=== PATIENT | female | born 1980 ===

== ENCOUNTER 2019-05-21 16:57 | Emergency (ER) | payer SELFPAY ==
[~2019-05-21] VITALS: Ht 162 cm; Wt 72.5 kg
[2019-05-21 17:15] LABS: BASOPHILS % (AUTO) 0 % (0-10); EOSINOPHILS % (AUTO) 0 % (0-10); HEMATOCRIT 42 % (35-52); HEMOGLOBIN 13.9 G/DL (11.5-16.0); LYMPHOCYTES % (AUTO) 22 % (12-44); MEAN CORPUSCULAR HEMOGLOBIN 28 PG (25-34); MEAN CORPUSCULAR HGB CONC 33 G/DL (32-36); MEAN CORPUSCULAR VOLUME 84 FL (80-99); MEAN PLATELET VOLUME 9.7 FL (7.4-10.4); MONOCYTES # (AUTO) 0.7 X 10^3 (0.0-1.0); MONOCYTES % (AUTO) 7 % (0-12); NEUTROPHILS # (AUTO) 6.6 X 10^3 (1.8-7.8); NEUTROPHILS % (AUTO) 71 % (42-75); PLATELET COUNT 320 10^3/uL (130-400); RED CELL DISTRIBUTION WIDTH 14.2 % (10.0-14.5); WHITE BLOOD COUNT 9.3 10^3/uL (4.3-11.0)
[2019-05-21] MEDS ORDERED: LACTATED RINGERS 1,000 ML IV ONE (17:38)
[2019-05-21 17:45] LABS: ALANINE AMINOTRANSFERASE 23 U/L (0-55); ALBUMIN 4.4 GM/DL (3.2-4.5); ALKALINE PHOSPHATASE 93 U/L (40-136); BILIRUBIN,TOTAL 0.3 MG/DL (0.1-1.0); BUN/CREATININE RATIO 13; CALCIUM 9.4 MG/DL (8.5-10.1); CARBON DIOXIDE 26 MMOL/L (21-32); CHLORIDE 105 MMOL/L (98-107); CREATININE SERUM 0.64 MG/DL (0.60-1.30); GFR ESTIMATED > 60; GLUCOSE 104 MG/DL (70-105); LIPASE 10 U/L (8-78); POTASSIUM 3.8 MMOL/L (3.6-5.0); SODIUM 139 MMOL/L (135-145); TOTAL PROTEIN 7.7 GM/DL (6.4-8.2)
[2019-05-21 17:48] LABS: PROTHROMBIN TIME PATIENT 13.5 SEC (12.2-14.7)
--- NOTE | 2019-05-21 17:53 | ED Chest Pain ---
General Chief Complaint: Chest Pain Stated Complaint: CHEST PAIN,SOB Nursing Triage Note: PT PRESENTS TO ED WITH COMPLAINTS OF R LOWER CP THAT INTERMITTENTLY RADIATES TO BOTH HER SHOULDERS X 4 DAYS. PT ALSO REPORTS SOA. Nursing Sepsis Screen: No Definite Risk Source: patient Exam Limitations: language barrier History of Present Illness Date Seen by Provider: May 21, 2019 Time Seen by Provider: 17:27 Initial Comments speaking and interview and exam via uniform force captain line. Here with report of chest discomfort that she describes as palpitations and tightness that radiates to her shoulders. She states that is happens intermittently and has happened over the last several days. She states that sometimes she will wake up and feel the palpitations. She reports that she feels like she can't breathe and has to breathe roll hard to get comfortable but then her hands and feet are numb and sometimes her face. There are times when she has nausea after eating and will have an episode again. Denies vomiting or diarrhea but does have occasional constipation. Denies dysuria. No other significant medical problems. Timing/Duration: intermittent, 4-5 days Severity/Quality: mild, tightness Location: central Radiation: shoulders Activities at Onset: none Prior CP/Workup: no prior chest pain Modifying Factors: improves with rest Associated Symptoms: No abdominal pain, No back pain, No diaphoresis; fatigue, nausea/vomiting, shortness of breath, weakness Allergies and Home Medications Allergies Coded Allergies: No Known Drug Allergies (Unverified , 05/21/19) Home Medications No Active Prescriptions or Reported Meds Patient Home Medication List Home Medication List Reviewed: Yes Review of Systems Review of Systems Constitutional: see HPI; No chills, No fever EENTM: No Symptoms Reported Respiratory: See HPI Cardiovascular: See HPI Gastrointestinal: See HPI; Denies Abdominal Pain Genitourinary: No Symptoms Reported Musculoskeletal: no symptoms reported Skin: no symptoms reported Psychiatric/Neurological: Anxiety, Numbness Endocrine: No Symptoms Reported All Other Systems Reviewed Negative Unless Noted: Yes Past Jlqgaof-Qxwsfm-Hixyol Hx Past Med/Social Hx: Reviewed Nursing Past Med/Soc Hx Patient Social History Alcohol Use: Denies Use Recreational Drug Use: No Smoking Status: Never a Smoker Recent Foreign Travel: No Contact w/Someone Who Travel: No Recent Infectious Disease Expo: No Physical Abuse: No Sexual Abuse: No Mistreated: No Fear: No Past Medical History Surgeries: Yes Section Respiratory: No Cardiac: No Neurological: No Genitourinary: No Gastrointestinal: No Musculoskeletal: No Endocrine: No HEENT: No Cancer: No Psychosocial: No Integumentary: No Blood Disorders: No Family Medical History Reviewed Nursing Family Hx No Pertinent Family Hx Physical Exam Vital Signs Vital Signs - First Documented 05/21/19 17:06 Temp 36.5 Pulse 79 Resp 16 B/P (MAP) 121/85 (97) Pulse Ox 100 O2 Delivery Room Air Capillary Refill : Less Than 3 Seconds Height, Weight, BMI Height: '" Weight: lbs. oz. kg; 27.00 BMI Method: General Appearance: No Apparent Distress, WD/WN HEENT: PERRL/EOMI, Pharynx Normal Neck: Non Tender, Supple Respiratory: Lungs Clear, Normal Breath Sounds Cardiovascular: Regular Rate, Rhythm, No Murmur Gastrointestinal: Non Tender, Soft Extremity: Normal Range of Motion, Non Tender, Other ( defect bilateral hands) Neurologic/Psychiatric: Alert, Oriented x3 Skin: Normal Color, Warm/Dry Progress/Results/Core Measures Results/Orders Lab Results Laboratory Tests Test 05/21/19 17:04 Range/Units White Blood Count 9.3 4.3-11.0 10^3/uL Red Blood Count 4.98 4.35-5.85 10^6/uL Hemoglobin 13.9 11.5-16.0 G/DL Hematocrit 42 35-52 % Mean Corpuscular Volume 84 80-99 FL Mean Corpuscular Hemoglobin 28 25-34 PG Mean Corpuscular Hemoglobin Concent 33 32-36 G/DL Red Cell Distribution Width 14.2 10.0-14.5 % Platelet Count 320 130-400 10^3/uL Mean Platelet Volume 9.7 7.4-10.4 FL Neutrophils (%) (Auto) 71 42-75 % Lymphocytes (%) (Auto) 22 12-44 % Monocytes (%) (Auto) 7 0-12 % Eosinophils (%) (Auto) 0 0-10 % Basophils (%) (Auto) 0 0-10 % Neutrophils # (Auto) 6.6 1.8-7.8 X 10^3 Lymphocytes # (Auto) 2.0 1.0-4.0 X 10^3 Monocytes # (Auto) 0.7 0.0-1.0 X 10^3 Eosinophils # (Auto) 0.0 0.0-0.3 10^3/uL Basophils # (Auto) 0.0 0.0-0.1 10^3/uL Prothrombin Time 13.5 12.2-14.7 SEC INR Comment 1.0 0.8-1.4 Activated Partial Thromboplast Time 29 24-35 SEC D-Dimer < 0.27 0.00-0.49 UG/ML Sodium Level 139 135-145 MMOL/L Potassium Level 3.8 3.6-5.0 MMOL/L Chloride Level 105 98-107 MMOL/L Carbon Dioxide Level 26 21-32 MMOL/L Anion Gap 8 5-14 MMOL/L Blood Urea Nitrogen 8 7-18 MG/DL Creatinine 0.64 0.60-1.30 MG/DL Estimat Glomerular Filtration Rate > 60 BUN/Creatinine Ratio 13 Glucose Level 104 70-105 MG/DL Calcium Level 9.4 8.5-10.1 MG/DL Corrected Calcium 9.1 8.5-10.1 MG/DL Magnesium Level 2.0 1.6-2.4 MG/DL Total Bilirubin 0.3 0.1-1.0 MG/DL Aspartate Amino Transf (AST/SGOT) 18 5-34 U/L Alanine Aminotransferase (ALT/SGPT) 23 0-55 U/L Alkaline Phosphatase 93 40-136 U/L Myoglobin 17.6 10.0-92.0 NG/ML Troponin I < 0.028 <0.028 NG/ML B-Type Natriuretic Peptide < 10.0 <100.0 PG/ML Total Protein 7.7 6.4-8.2 GM/DL Albumin 4.4 3.2-4.5 GM/DL Lipase 10 8-78 U/L TSH [place] Testing 3.31 0.35-4.94 UIU/ML My Orders Orders - JENNA YA MD Lactated Ringers (Lr 1000 Ml Iv Solution (05/21/19 17:38) Thyroid Analyzer (05/21/19 17:53) Medications Given in ED Current Medications Medications Dose Ordered Sig/Rakesh Route Start Time Stop Time Status Last Admin Dose Admin Lactated Ringer's 1,000 ml @ 0 mls/hr Q0M ONCE IV 05/21/19 17:38 05/21/19 17:39 DC 05/21/19 17:49 0 MLS/HR Vital Signs/I&O 05/21/19 05/21/19 17:06 17:06 Temp 36.5 Pulse 79 Resp 16 B/P (MAP) 121/85 (97) Pulse Ox 100 O2 Delivery Room Air Blood Pressure Mean: 97 Progress Progress Note : Progress Note Seen and evaluated. IV, labs, chest x-ray and EKG ordered. LR 1 L bolus. Monitor patient. 183: All labs and images are normal. Patient is doing much better. I did discuss with her regarding anxiety. We will initiate Vistaril for these events. Have instructed her to follow-up as well. Discharged home with return precautions. Patient verbalize understanding instructions and agreement with plan. Initial ECG Impression Date: May 21, 2019 Initial ECG Impression Time: 17:04 Initial ECG Rate: 86 Initial ECG Rhythm: Normal Sinus Initial ECG Impression: Normal Initial ECG Comparisson: No Previous ECG Available Comment Normal sinus rhythm with normal axis. No evidence of ST elevation [place]. No previous available for comparison. Interpreted by me. Diagnostic Imaging Diagonstic Imaging: Xray Plain Films/CT/US/NM/MRI: chest Comments NAME: LEOBARDO HOFFMANN [facility] REC#: [id number] PT STATUS: REG ER : 1980 PHYSICIAN: JUSTIN GUSTAFSON APRN ADMIT DATE: 05/21/19/ER Draft Date of Exam:05/21/19 CHEST 1 VIEW, AP/PA ONLY INDICATION: Right lower chest pain intermittently radiating to both shoulders for four days. EXAMINATION: Single view chest, 05/21/2019. FINDINGS: The heart and pulmonary vasculature appear unremarkable. The lungs and pleural spaces are clear. No pneumothorax. IMPRESSION: No acute process. Dictated on workstation # [id number] Dict: 05/21/19 1751 Trans: 05/21/19 1810 [facility] [id number] Interpreted by: CHILANGO ULLOA MD Electronically signed by: Departure Impression Primary Impression: Chest pain Qualified Codes: R07.9 - Chest pain, unspecified Additional Impression: Anxiety Disposition: 01 HOME, SELF-CARE Condition: Improved Departure-Patient Inst. Decision time for Depature: 18:40 Referrals: NO,LOCAL PHYSICIAN (PCP) Primary Care Physician Patient Instructions: Chest Pain (DC), Anxiety, Adult (DC) Add. Discharge Instructions: All discharge instructions reviewed with patient and/or family. Voiced understanding. Take medications as directed. Follow-up with your Dr. in a few days for recheck as needed. Return for chest pain, breathing problems, weakness, vomiting or other concerns as needed. Scripts Hydroxyzine Pamoate (Vistaril) 25 Mg Capsule 25 MG PO Q8H PRN for ANXIETY, #20 CAP 0 Refills Prov: JENNA YA MD 05/21/19 Copy Copies To 1: PATRICIA ADHIKARI TIMOTHY D MD May 21, 2019 17:53
--- NOTE | 2019-05-21 18:12 | Diagnostic Imaging Report ---
INDICATION: Right lower chest pain intermittently radiating to both shoulders for four days. EXAMINATION: Single view chest, 05/21/2019. FINDINGS: The heart and pulmonary vasculature appear unremarkable. The lungs and pleural spaces are clear. No pneumothorax. IMPRESSION: No acute process. Dictated by: Dictated on workstation # [id number]
[2019-05-21] MEDS ORDERED: HYDR25CA PO (18:43)
[2019-05-21 18:56] VITALS: BP 116/71
--- OUTSIDE RECORDS SUMMARY | 2019-05-25 17:43 | XMS REPORT | Continuity of Care Document ---
Author Organization Unknown Address Unknown Phone Unavailable Allergies Active Description Code Type Severity Reaction Onset Reported/Identified Relationship to Patient Clinical Status Yes No Known Drug Allergies [id number] Drug Allergy Unknown N/A 05/21/2019 Medications There is no data. Problems There is no data. Procedures There is no data. Results Test Result Range Complete blood count (CBC) with automate d white blood cell (WBC) differential - 05/21/19 17:04 Blood leukocytes automated count (number/volume) 9.3 10*3/uL 4.3-11.0 Blood erythrocytes automated count (number/volume) 4.98 10*6/uL 4.35-5.85 Venous blood hemoglobin measurement (mass/volume) 13.9 g/dL 11.5-16.0 Blood hematocrit (volume fraction) 42 % 35-52 Automated erythrocyte mean corpuscular volume 84 [ foz_us] 80-99 Automated erythrocyte mean corpuscular h emoglobin (mass per erythrocyte) 28 pg 25-34 Automated erythrocyte mean corpuscular h emoglobin concentration measurement (mass/volume) 33 g/dL 32-36 Automated erythrocyte distribution width ratio 14. 2 % 10.0- 14.5 Automated blood platelet count (count/volume) 320 10*3/uL 130-400 Automated blood platelet mean volume measurement 9.7 [foz_us] 7.4-10.4 Automated blood neutrophils/100 leukocytes 71 % 42-75 Automated blood lymphocytes/100 leukocytes 22 % 12-44 Blood monocytes/100 leukocytes 7 % 0-12 Automated blood eosinophils/100 leukocytes 0 % 0-10 Automated blood basophils/100 leukocytes 0 % 0-10 Blood neutrophils automated count (number/volume) 6.6 10*3 1.8-7.8 Blood lymphocytes automated count (number/volume) 2.0 10*3 1.0-4.0 Blood monocytes automated count (number/volume) 0. 7 10*3 0.0-1.0 Automated eosinophil count 0.0 10*3/uL 0 .0-0.3 Automated blood basophil count (count/volume) 0.0 10*3/uL 0.0-0.1 Comprehensive metabolic panel - 05/21/19 17:04 Serum or plasma sodium measurement (moles/volume) 139 mmol/L 135-145 Serum or plasma potassium measurement (moles/volume) 3.8 mmol/L 3.6-5.0 Serum or plasma chloride measurement (moles/volume) 105 mmol/L 98-107 Carbon dioxide 26 mmol/L 21-32 Serum or plasma anion gap determination (moles/volume) 8 mmol/L 5-14 Serum or plasma urea nitrogen measurement (mass/volume ) 8 mg/dL 7-18 Serum or plasma creatinine measurement (mass/volume) 0.64 mg/dL 0.60-1.30 Serum or plasma urea nitrogen/creatinine mass ratio 13 NRG Serum or plasma creatinine measurement w ith calculation of estimated glomerular filtration rate > NRG Serum or plasma glucose measurement (mass/volume) 104 mg/dL 70-105 Serum or plasma calcium measurement (mass/volume) 9.4 mg/dL 8.5-10.1 Serum or plasma total bilirubin measurement (mass/volu me) 0.3 mg/dL 0.1-1.0 Serum or plasma alkaline phosphatase carmela surement (enzymatic activity/volume) 93 U/L 40-136 Serum or plasma aspartate aminotransfera se measurement (enzymatic activity/volume) 18 U/L 5-34 Serum or plasma alanine aminotransferase measurement (enzymatic activity/volume) 23 U/L 0-55 Serum or plasma protein measurement (mass/volume) 7.7 g/dL 6.4-8.2 Serum or plasma albumin measurement (mass/volume) 4.4 g/dL 3.2-4.5 CALCIUM CORRECTED 9.1 mg/dL 8.5-10.1 Magnesium - 05/21/19 17:04 Magnesium 2.0 mg/dL 1.6-2.4 Myoglobin, serum - 05/21/19 17:04 Myoglobin, serum 17.6 ng/mL 10.0-92.0 Serum or plasma lithium measurement (mol es/volume) - 05/21/19 17:04 BNP PT < 10.0 <100.0 Lipase - 05/21/19 17:04 Lipase 10 U/L 8-78 Serum or plasma troponin i.cardiac measu rement (mass/volume) - 05/21/19 17:04 Serum or plasma troponin i.cardiac measurement (mass/v olume) < ng/mL <0.028 PT panel in platelet poor plasma by coag ulation assay - 05/21/19 17:04 Prothrombin time (PT) in platelet poor plasma by coagu lation assay 13.5 s 12.2-14.7 INR in platelet poor plasma or blood by coagulation as say 1.0 0.8-1.4 Activated partial thromboplastin time (a PTT) in platelet poor plasma bycoagulation assay - 05/21/19 17:04 Activated partial thromboplastin time (a PTT) in platelet poor plasma bycoagulation assay 29 s 24-35 Fibrin D-dimer FEU measurement in platel et poor plasma (mass/volume) - 05/21/19 17:04 Fibrin D-dimer FEU measurement in platelet poor plasma (mass/volume) < ug/mL 0.00-0.49 Serum or plasma thyrotropin measurement by detection limit <=0.05 miu/l (units/volume) - 05/21/19 17:04 Serum or plasma thyrotropin measurement by detection limit <=0.05 miu/l (units/volume) 3.31 u[iU]/mL 0.35-4.94 Encounters ACCT No. Visit Date/Time Discharge Status Pt. Type Provider Facility Loc./Unit Complaint [id number] 05/21/2019 16:59:00 020 18:56:00 DIS Emergency BHAKTI CASTRO, JENNA Carlin [facility] ER CHEST PAIN,SOB
== END 2019-05-21 18:56 | disposition home or self-care (01) ==
LOC: ER 16:59
DX: R07.89 Other chest pain (principal); F41.9 Anxiety disorder, unspecified
CPT/HCPCS: 36415; 71045; 80053; 83690; 83735; 83874; 83880; 84443; 84484; 85025; 85379; 85610; 85730; 93005; 93041